=== PATIENT | male | born 1975 | race Caucasian/White ===

== ENCOUNTER 2016-09-08 11:22 | Emergency (ER) | payer OTHER ==
[~2016-09-08] VITALS: Ht 180.3 cm; Wt 87.5 kg
[2016-09-08] MEDS ORDERED: HYDROCHLOROTHIA25 M2 PO (11:59)
[2016-09-08] MEDS ORDERED: LISINOPRIL10 MG PO (11:59)
[2016-09-08 12:17] VITALS: BP 139/107
== END 2016-09-08 15:13 | disposition home or self-care (01) ==
LOC: ER 11:22
DX: I10 Essential (primary) hypertension (principal); F10.99 Alcohol use, unspecified with unspecified alcohol-induced disorder